=== PATIENT | female | born 1960 | race American Indian/Alaskan Native ===

== ENCOUNTER 2018-06-01 21:07 | Emergency (ER) | payer SELFPAY ==
[2018-06-01 21:25] VITALS: BP 170/83
[2018-06-01] MEDS ORDERED: TORADOL IM ONE (22:02)
--- NOTE | 2018-06-01 22:24 | XRay Report ---
FINAL REPORT EXAM: XR NECK SOFT TISSUE HISTORY: Foreign body in throat FEELS LIKE GLASS IN THROAT AFTER DRINKING TECHNIQUE: Frontal and lateral views of the neck Comparison: None FINDINGS: There is no definite plain film evidence of radiopaque foreign body. There is no evidence of compromise of the airway. The bony structures are unremarkable in appearance. IMPRESSION: 1. No plain film evidence of radiopaque foreign body. If further imaging is required, CT may be helpful.
--- NOTE | 2018-06-02 01:38 | Emergency Department Report ---
ED General Adult HPI - General Chief complaint: Skin/Abscess/Foreign Body Stated complaint: GLASS IN THROAT Time Seen by Provider: 06/02/18 01:34 Source: patient Mode of arrival: Ambulatory Limitations: No Limitations - History of Present Illness Initial comments: 57-year-old -[place] female the past medical history of hypertension comes to the emergency room statements she felt that she may have swallowed glass by drinking out of a bottle drink. Patient reports that her [employer] drink was open on a ledge while she was sleeping she she went to drink and when she swallowed she felt something go down her throat. Patient denies bottle being broken. Patient denies anything in the bottle when she poured out the rest of the substance. Patient reports she has not eaten anything since she felt foreign object go down her throat. Location: mouth Radiation: non-radiation (throat) Severity scale (0 -10): 8 Quality: sharp Consistency: intermittent Improves with: none Worsens with: none Associated Symptoms: denies other symptoms Treatments Prior to Arrival: none - Related Data Home Medications Medication Instructions Recorded Confirmed Last Taken HCTZ 25 mg PO DAILY 06/01/18 06/01/18 Unknown Previous Rx's Medication Instructions Recorded Last Taken Type traMADol [Ultram 50 MG tab] 50 mg PO Q6HR PRN 3 Days #12 tablet 06/02/18 Unknown Rx Allergies Allergy/AdvReac Type Severity Reaction Status Date / Time lisinopril Allergy Anaphylaxis Verified 06/01/18 21:44 ED Review of Systems ROS: Stated complaint: GLASS IN THROAT Other details as noted in HPI ENT: throat pain ED Past Medical Hx - Past Medical History Hx Hypertension: Yes - Surgical History Past Surgical History?: Yes Additional Surgical History: Right Hip Replacement. - Social History Smoking Status: Current Every Day Smoker Substance Use Type: None - Medications Home Medications: Home Medications Medication Instructions Recorded Confirmed Last Taken Type HCTZ 25 mg PO DAILY 06/01/18 06/01/18 Unknown History traMADol [Ultram 50 MG tab] 50 mg PO Q6HR PRN 3 Days #12 tablet 06/02/18 Unknown Rx ED Physical Exam - General Limitations: No Limitations ED Course Vital Signs 06/01/18 06/01/18 21:18 21:35 Temperature 98.5 F 98.5 F Pulse Rate 95 H 92 H Respiratory 18 16 Rate Blood Pressure 170/83 170/83 O2 Sat by Pulse 99 100 Oximetry ED Medical Decision Making - Radiology Data Radiology results: report reviewed, image reviewed FINDINGS: There is no definite plain film evidence of radiopaque foreign body. There is no evidence of compromise of the airway. The bony structures are unremarkable in appearance. IMPRESSION: 1. No plain film evidence of radiopaque foreign body. If further imaging is required, CT may be helpful. Transcribed By: ED Dictated By: ARINA WALSH MD Electronically Authenticated By: ARINA WALSH MD Signed Date/Time: 06/01/18 0036 - Medical Decision Making Patient has been evaluated by this provider fast track. Patient's been given Toradol for pain control. X-rays of soft tissue was ordered which shows no radiopaque object. Critical care attestation.: If time is entered above; I have spent that time in minutes in the direct care of this critically ill patient, excluding procedure time. ED Disposition Clinical Impression: Throat discomfort Disposition: DC-01 TO HOME OR SELFCARE Is pt being admited?: No Does the pt Need Aspirin: No Condition: Stable Additional Instructions: X-rays negative for any foreign body. Recommend taking pain medication as needed. If she has symptoms persist or gets worse please follow up with her primary care provider or ear nose and throat provider that I have listed below. Prescriptions: traMADol [Ultram 50 MG tab] 50 mg PO Q6HR PRN 3 Days #12 tablet PRN Reason: Pain Referrals: PRIMARY CAREMD [Primary Care Provider] - 3-5 Days [facility] [Provider Group] - 3-5 Days [facility] [Provider Group] - 3-5 Days Forms: Work/School Release Form(ED), Accompanied Note
== END 2018-06-02 02:19 | disposition home or self-care (01) ==
LOC: ED 21:07
DX: R09.89 Other specified symptoms and signs involving the circulatory and respiratory systems (principal); I10 Essential (primary) hypertension; F17.200 Nicotine dependence, unspecified, uncomplicated; Z88.8 Allergy status to other drugs, medicaments and biological substances
CPT/HCPCS: 70360; 96372; 99283; J1885